=== PATIENT | male | born 2000 | race Caucasian/White ===

== ENCOUNTER 2025-02-24 08:50 | Emergency (ER) | payer BC ==
[~2025-02-24] VITALS: Ht 182.9 cm; Wt 63.5 kg
[2025-02-24 09:49] LABS: Source, Urine Clean Catch
[2025-02-24 09:53] LABS: Appearance, Urine Clear (Clear); Bilirubin, Urine Neg (Neg); Blood, Urine Neg (Neg); Color, Urine Yellow (P-Yellow); Glucose Qualitative, Urine Neg (Neg); Ketones, Urine Neg (Neg); Leukocyte Esterase, Urine Neg (Neg); Nitrite, Urine Neg (Neg); Protein, Urine 2+ (Neg); Urobilinogen, Urine NORM (Normal); pH, Urine 6.5 (5.0-8.0)
[2025-02-24 10:01] LABS: Bacteria Rare /hpf; Red Blood Cells, Urine 0-2 /hpf (0-2); Squamous Epithelial Cells Not Seen /hpf (Few); White Blood Cells, Urine 0-2 /hpf (0-5)
[2025-02-24 12:44] LABS: Chlamydia Trachomatis Urine NOT DETECTED (NOT DETECT); Neisseria Gonorrhoea Urine NOT DETECTED (NOT DETECT)
[2025-02-24] MEDS ORDERED: Morphine Sulfate 4 MG/1 ML Injection IV ONE (12:50)
[2025-02-24] MEDS ORDERED: Ondansetron HCl 2 MG / ML 2ML Vial IV ONE (12:50)
[2025-02-24] MEDS ORDERED: Diazepam 5 MG / ML 2ML SYR IV ONE (14:25)
[2025-02-24 15:41] LABS: BASOPHILS ABSOLUTE AUTO 0.05 K/mm3 (0.00-0.23); BASOPHILS PERCENT AUTO 1 % (0-2); EOSINOPHILS ABSOLUTE AUTO 0.01 K/mm3 (0.00-0.68); EOSINOPHILS PERCENT AUTO 0 % (0-6); Hematocrit 42.2 % (37.0-53.0); Hemoglobin 14.8 g/dL (13.5-17.5); IMMATURE GRAN ABSOLUTE AUTO 0.04 K/mm3 (0.00-0.10); IMMATURE GRAN PERCENT AUTO 0 % (0-1); LYMPHOCYTES PERCENT AUTO 16 % (21-46); MONOCYTES ABSOLUTE AUTO 0.78 K/mm3 (0.16-1.47); MONOCYTES PERCENT AUTO 7 % (4-13); Mean Corpuscular HGB 33.1 pg (26.0-34.0); Mean Corpuscular HGB Conc 35.1 g/dL (31.5-36.5); Mean Corpuscular Volume 94 fL (80-100); Mean Platelet Volume 9.2 fL (9.1-12.4); NEUTROPHILS ABSOLUTE AUTO 8.07 K/mm3 (1.96-9.15); NEUTROPHILS PERCENT AUTO 76 % (41-73); Platelet Count 286 K/mm3 (150-400); RDW Coefficient Variation 11.9 % (11.7-14.2); RDW Standard Deviation 40.9 fL (35.1-46.3); Red Blood Cell Count 4.47 M/mm3 (4.30-5.90); White Blood Cell Count 10.65 K/mm3 (4.00-11.30)
[2025-02-24 16:30] LABS: Albumin, Blood 4.1 g/dL (3.4-5.0); Albumin/Globulin Ratio 1.3 (0.8-1.8); Bilirubin, Total 1.2 mg/dL (0.1-1.0); Bun/Creatinine Ratio 9.9 (12.0-20.0); Calcium, Blood 9.4 mg/dL (8.5-10.1); Creatinine, Blood 0.81 mg/dL (0.60-1.20); Globulin, Blood 3.2 g/dL (2.2-4.0); Potassium, Blood 3.8 mmol/L (3.5-5.5); Total Protein, Blood 7.3 g/dL (6.4-8.2)
[2025-02-24] MEDS ORDERED: OXAYDO5 M1 PO (17:13)
[2025-02-28 15:42] LABS: HIV 1,2 COMBO ANTIGEN/ANTIBODY Negative (Negative)
[2025-03-06] MEDS ORDERED: ACET325 PO (11:51)
== END 2025-02-24 17:20 | disposition home or self-care (01) ==
LOC: ER 08:50
PROVIDERS: Student in an Organized Health Care Education/Training Program
DX: K40.90 Unilateral inguinal hernia, without obstruction or gangrene, not specified as recurrent (principal)
CPT/HCPCS: 72193; 76857; 76870; 80053; 81001; 85025; 86592; 87389; 87491; 87591; 96374-59; 96375; 99284-25; J2270; J2405; J3360; Q9967

== ENCOUNTER 2025-03-08 06:51 | Day surgery (SDC) | payer BC ==
[~2025-03-08] VITALS: Ht 182.9 cm; Wt 62.1 kg
[2025-03-08] VITALS (14 sets, daily range): BP systolic 77–125; BP diastolic 42–80
[~2025-03-08 06:51] MED LIST: ACET325 PO; CeFAZolin Sodium 2,000 MG in NS 100 ML IV SCH; Dexamethasone Sod Phos 10 MG/ML 1ML VIAL ONE; Dexmedetomidine HCL 200 MCG / 2 ML ONE; Ketorolac Tromethamine 30mg Vial ONE; Lidocaine HCl 4% 5 ML SDA ONE; Metoclopramide HCl 5MG / ML 2ML Vial ONE; OXAYDO5 M1 PO; Ondansetron HCl 2 MG / ML 2ML Vial ONE; Rocuronium Bromide 10 MG/ML 5ML Injection IV ONE; Sugammadex Sodium 200 MG/2ML SDV (100 MG/ML) ONE
[2025-03-08] MEDS ORDERED: Bupivacaine 0.5% HCl 5 MG/ML 30MLVIAL ONE (07:07)
--- NOTE | 2025-03-08 07:26 | NUR ---
Ambulatory in Day Surgery. History, Chart, Medications and Allergies reviewed before start of procedure. Lungs clear T/O to Auscultation. Patient confirms NPO status and agrees with scheduled surgery. Pre-Op teaching done. Pt verbalizes understanding. Patient States Post-Procedure ride home has been arranged. PT BELONGINGS PLACED [facility]ERNEATH [facility] FOR SAFEKEEPING. PT HAS NOSE RING IN PLACE THAT CANNOT BE REMOVED, JEWELRY WAIVER SIGNED, JEWELRY TAPED AND OR TEAM NOTIFIED.
[2025-03-08] MEDS ORDERED: HYDROmorphone HCl/Pf 1MG SYR ONE (08:04)
[2025-03-08] MEDS ORDERED: FentaNYL Citrate 50 MCG/ML 2 ML Injection ONE ×2 (08:41→10:28)
[2025-03-08] MEDS ORDERED: Rocuronium Bromide 10 MG/ML 5ML Injection IV ONE (09:26)
[2025-03-08] MEDS ORDERED: OxyCODONE 5 mg/Acetamin 325 mg TABLET PO PRN (10:25)
--- NOTE | 2025-03-08 11:01 | NUR ---
Pt to PACU on 6L NRB, allowed to sleep based on report of pre-op anxiety. VSS. Upon arousal, pt calm and cooperate, A&O, states pain 6-7/10. Weaned to RA. 25 mcg fent at 1025 w little effect, sBP down to high 70s but ANesthesia present and aware, asymptomatic, cuff repositioned. 2nd dose 25 mcg fent at 1040, pain down to 6. Edu provided on pain mgmt, activity mgmt, and gas vs incisional pain, pt receptive and asking appropriate questions. BPs normalized. Bedside report to Aiden SHELDON.
--- NOTE | 2025-03-08 12:18 | NUR ---
Discharge instructions reviewed with patient. Patient verbalizes understanding. Copy given to patient to take home. Dressings x3 c/d/i. 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 Ice pack provided. Patient States Post-Procedure ride home has been arranged. Discharged via wheelchair to private car for ride home.
== END 2025-03-08 12:10 | disposition home or self-care (01) ==
LOC: ORSCMMR 06:51 → ORD 08:00 → ORSCMMR 12:10
PROVIDERS: Surgery
PROC: 0YUA4JZ Supplement Bilateral Inguinal Region with Synthetic Substitute, Percutaneous Endoscopic Approach (ICD-10-PCS; principal; 2025-03-08 08:00)
PROC: 8E0W4CZ Robotic Assisted Procedure of Trunk Region, Percutaneous Endoscopic Approach (ICD-10-PCS; principal; 2025-03-08 08:00)
DX: K40.00 Bilateral inguinal hernia, with obstruction, without gangrene, not specified as recurrent (principal); K66.0 Peritoneal adhesions (postprocedural) (postinfection); F17.210 Nicotine dependence, cigarettes, uncomplicated
CPT/HCPCS: A9270; C1781; J0690; J1100; J1171; J1885; J2003; J2405; J2704; J2765; J3010; J7120